=== PATIENT | female | born 1990 | race Caucasian/White ===

== ENCOUNTER 2016-11-05 11:00 | Outpatient (RCR) | payer BC, OTHER | END 2016-11-07 | disposition home or self-care (01) | PROVIDERS: ATTEND Family Medicine Sports Medicine | DX: M25.552 Pain in left hip (principal) ==

== ENCOUNTER 2016-12-18 08:45 | Outpatient (RCR) | payer BC, OTHER | END 2017-01-26 10:01 | disposition home or self-care (01) | PROVIDERS: ATTEND Family Medicine Sports Medicine | DX: M25.552 Pain in left hip (principal) ==